=== PATIENT | female | born 1995 | race Caucasian/White ===

== ENCOUNTER 2017-06-16 14:32 | Emergency (ER) | payer OTHER ==
[~2017-06-16] VITALS: Ht 157.5 cm; Wt 94.3 kg
[~2017-06-16 14:32] MED LIST: CONCCAP2 PO; [UNRECOGNIZED DRUG - CODE] IM
--- NOTE | 2017-06-16 15:28 | PD ---
HPI Chief Complaint Lower abdominal pain Left sided back pain Date Seen: Jun 16, 2017 Time Seen: 15:25 (Jami Clark MD R1) Travel History International Travel<30 Days: No Contact w/Intl Traveler<30Days: No Known Affected Area: No (Jami Clark MD R1) History of Present Illness HPI Patient is a 22-year-old at 23 weeks and 5 days (HILDA 10/08/17 based on last menstrual period and confirmed by ultrasound) presents to OB triage complaining of lower abdominal and left-sided back pain. The abdominal pain is located across patient's lower midsection. The pain is constant but alters in intensity. Pain, at its worst, is a 6 out of 10. Tylenol does not relieve pain. Patient denies increased frequency in urination and burning with urination. Patient denies fever and chills. Patient denies contractions, vaginal bleeding and fluid leakage. Patient reports decreased movement today. Para: 0 : 1 (Jami Clark MD R1) History Past Medical History Narrative Medical RPR +; treated for syphilis 2 in 2016; last treatment last month; titer follow- up scheduled for 28 weeks by OB (Jami Clark MD R1) Obstetric History Obstetric History G1: current , no complications (Jami Clark MD R1) Past Surgical History Narrative Surgical Tonsillectomy - when patient was in kindergarten Broken arm - right, plate placement; when patient was in kindergarten No complications with anesthesia (Jami Clark MD R1) Family History Narrative Family History Mom and grandmom had C-sections; reason unknown (Jami Clark MD R1) Social History Alcohol Use: No Tobacco Use: Yes (1/2 to 1 pack per day) Substance Abuse: No (history of methamphetamine, heroin use; 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 ) (Jami Clark MD R1) Allergies-Medications (Allergen,Severity, Reaction): Coded Allergies: No Known Allergies (Unverified , 06/16/17) Home Meds Active Scripts Penicillin G Benzathine (Bicillin L-A)2,400,000 Unit/4 Ml Inj2,400,000 Units IM ONCE #1 VIAL Ref 0 Prov:Bhanu Garcia MD 04/08/17 Vit W/ Fe Fum-Iron Po (Concept Dha 53.5-38-1 mg)1 Cap Cap1 Tab PO DAILY #30 BOTTLE Ref 11 Prov:Lorri Acuna 03/20/17 Review of Systems General / Constitutional: No: Fever, Chills Eyes: No: Diploplia, Blurred Vision, Visual changes, Pain, Photophobia HENT: No: Headaches, Vertigo, Lightheadedness Cardiovascular: No: Irregular Rhythm, Chest Pain or Discomfort, Palpitations, Tachycardia, Syncope, Varicosities, Edema, Cyanosis Respiratory: No: Cough, Short of Breath, Other Gastrointestinal: Abdominal Pain, No: Nausea, Vomiting, Diarrhea Genitourinary: No: Urgency, Frequency, Dysuria, Hematuria, Vaginal Bleeding Musculoskeletal: No: Limited ROM, Weakness, Cramping, Edema, Pain Skin: No Rash, No Itching, No Dryness, No Lumps, No Change in Pigmentation, No Change in Nails, No Alopecia, No Lesions Neurologic: No: Weakness, Dizziness, Syncope, Focal Abnormalities, Coordination Problem, Headache, Slurred Speech, Seizures Psychiatric: No: Depression, Suicidal Ideations, Homicidal Ideation Endocrine: No: Heat Intolerance, Cold Intolerance, Polydipsia, Polyuria, Other (Jami Clark MD R1) Physical Exam Blood pressure 96/67, heart rate 83, respiratory rate 16, temperature 97.8 Narrative GENERAL: Well-nourished, well-developed patient. SKIN: Warm and dry. HEAD: Normocephalic and atraumatic. EYES: No scleral icterus. No injection or drainage. ENT: No nasal drainage noted. Mucous membranes pink. Airway patent. NECK: Supple, trachea midline. No JVD. CARDIOVASCULAR: Regular rate and rhythm without murmurs, gallops, or rubs. RESPIRATORY: Breath sounds equal bilaterally. No accessory muscle use. ABDOMEN/GI: Abdomen soft, non-tender, bowel sounds present, no rebound, no guarding Gravid to 23 weeks size GENITOURINARY: External Genitalia: intact and normal in appearance Cervix: Posterior Dilatation: Closed Effacement: Thick Station: High Membranes: Intact Uterine Contractions: None FHT's: Category: 1 Baseline: 150 Variability: Moderate Decels: None EXTREMITIES: No cyanosis or edema. BACK: Nontender without obvious deformity. No CVA tenderness. NEUROLOGICAL: Awake and alert. Motor and sensory grossly within normal limits. Five out of 5 muscle strength in all muscle groups. Normal speech. (Jami Clark MD R1) Data Data Vital Signs Reviewed: Yes (Jami Clark MD R1) MDM Plan Patient is a 22-year-old at 23 weeks and 5 days (HILDA 10/08/17 based on last menstrual period and confirmed by ultrasound) presents to OB triage complaining of lower abdominal and left-sided back pain. Round ligament pain * Educated and reassured patient with regard to benign nature of pain * Recommended pain control with Tylenol and hot showers Rule out UTI/Pyelonephritis * Urine drip negative (Jami Clark MD R1) Attending Attestation The exam, history, and the medical decision-making described in the above note were completed with the assistance of the resident provider. Cervical exam was verified by me. I reviewed and agree with the findings presented. I attest that I had a [id number] encounter with the patient on the same day, and personally performed and documented my assessment and findings in the medical record. (Dona Rebolledo MD) Diagnosis Diagnosis: Primary Impression: Round ligament pain Additional Impression: 23 weeks gestation of Disposition: 01 DISCHARGE HOME Condition: Good Patient Instructions: Movement (ED) Jami Clark MD R1 Jun 16, 2017 15:28 Dona Rebolledo MD Jun 16, 2017 15:59
--- NOTE | 2017-06-16 15:58 | PD.PN.STU ---
Subjective Remarks 22 yo at 23/5 weeks with HILDA 10/08/17 by LMP and US presents today with abdominal and low back pain. She states that for the last week she has had constant, sharp, 5/10 low abdominal pain. She also states she has right sided non-radiating low back pain. She has tried Tylenol twice without relief. She has been receiving care at [facility]. RPR+ with treatment last month. Rh-. She denies any increased urinary frequency, burning, fever or chills. She denoes contractions, vaginal bleeding, fluid leakage. She began to feel movement around 20 weeks. She has decreased movement yesterday. Past Medical History History of syphilis s/p treatment x2 both in 2017. She has follow up appointment at 28 weeks. Mediations Vitamins Allergies NKDA Surgical History Tonsillectomy in kindergarten Broken arm with pin placement in kindergarten Social History Tobacco use 1/2 to 1 pack per day. Currently attending [employer] [facility] [employer] [facility]. No alcohol use Past history of drug abuse with heroin, meth and coke. She has been clean for 1 year and has a good support system. Lives at home with dad, step mom and step sister. Reports a very supportive family. Father of baby is not involved. Objective Other Results Blood pressure 96/67, heart rate 83, respiratory rate 16, temperature 97.8 Narrative GENERAL: Well-nourished, well-developed patient. SKIN: Warm and dry. HEAD: Normocephalic and atraumatic. EYES: No scleral icterus. No injection or drainage. ENT: No nasal drainage noted. Mucous membranes pink. Airway patent. NECK: Supple, trachea midline. No JVD. CARDIOVASCULAR: Regular rate and rhythm without murmurs, gallops, or rubs. RESPIRATORY: Breath sounds equal bilaterally. No accessory muscle use. ABDOMEN/GI: Abdomen soft, non-tender, bowel sounds present, no rebound, no guarding Gravid to 23 weeks size GENITOURINARY: External Genitalia: intact and normal in appearance Cervix: Posterior Dilatation: Closed Effacement: Thick Station: High Membranes: Intact Uterine Contractions: None FHT's: Category: 1 Baseline: 150 Variability: Moderate Decels: None EXTREMITIES: No cyanosis or edema. BACK: Nontender without obvious deformity. No CVA tenderness. NEUROLOGICAL: Awake and alert. Motor and sensory grossly within normal limits. Five out of 5 muscle strength in all muscle groups. Normal speech. Procedures Urine dipstick negative throughout A/P Assessment and Plan 1. Round Ligament Pain - informed patient on etiology and to control pain with Tylenol, heating pads and light stretching - encouraged PO intake to remain well hydrated Attestation The exam, history, and the medical decision-making described in the above note were completed with the assistance of the medical student. I reviewed and agree with the findings presented. I attest that I had a [id number] encounter with the patient on the same day, and personally performed and documented my assessment and findings in the medical record. Aileen Joyner Jun 16, 2017 15:58 Dona Rebolledo MD Jun 16, 2017 17:30
== END 2017-06-16 16:33 | disposition home or self-care (01) ==
LOC: HOBED 14:32
DX: O26.892 Other specified pregnancy related conditions, second trimester (principal); Z3A.23 23 weeks gestation of pregnancy
CPT/HCPCS: 99284

== ENCOUNTER 2017-09-09 00:13 | Emergency (ER) | payer OTHER ==
[~2017-09-09 00:13] MED LIST changes: -[UNRECOGNIZED DRUG - CODE] IM
--- NOTE | 2017-09-09 00:49 | PD ---
HPI Chief Complaint Abdominal pain, back pain, leakage of fluid Date Seen: Sep 09, 2017 Time Seen: 00:40 Travel History International Travel<30 Days: No Contact w/Intl Traveler<30Days: No Known Affected Area: No History of Present Illness HPI Patient is 22-year-old white female at 35 weeks gestation [facility] and sent over from [facility] for OB evaluation. Patient presented therefore evaluation of low back pain lower abdominal pain leakage of fluid. Amnio sure was negative there. Heart rate tracing is reactive. No contractions seen Weeks Gestation: 35 Para: 0 : 1 History Social History Alcohol Use: No Tobacco Use: No Substance Abuse: No Allergies-Medications (Allergen,Severity, Reaction): Coded Allergies: No Known Allergies (Unverified , 08/20/17) Home Meds Active Scripts Vit W/ Fe Fum-Iron Po (Concept Dha 53.5-38-1 mg) 1 Cap Cap, 1 TAB PO DAILY, #30 BOTTLE 11 Refills Prov:Lorri Acuna 03/20/17 Review of Systems General / Constitutional: No: Fever, Weight Gain, Chills, Other Eyes: No: Diploplia, Blurred Vision, Visual changes, Pain, Photophobia HENT: No: Headaches, Vertigo, Lightheadedness Cardiovascular: No: Irregular Rhythm, Chest Pain or Discomfort, Palpitations, Tachycardia, Syncope, Varicosities, Edema, Cyanosis Respiratory: No: Cough, Short of Breath, Other Gastrointestinal: Abdominal Pain, No: Nausea, Vomiting, Diarrhea Genitourinary: No: Decreased Urinary Output, Oliguria Musculoskeletal: No: Limited ROM, Weakness, Cramping, Edema, Pain Skin: No Rash, No Itching, No Dryness, No Lumps, No Change in Pigmentation, No Change in Nails, No Alopecia, No Lesions Neurologic: No: Weakness, Dizziness, Syncope, Focal Abnormalities, Coordination Problem, Headache, Slurred Speech, Seizures Psychiatric: No: Depression, Suicidal Ideations, Homicidal Ideation Endocrine: No: Heat Intolerance, Cold Intolerance, Polydipsia, Polyuria, Other Physical Exam Narrative GENERAL: Well-nourished, well-developed patient. SKIN: Warm and dry. HEAD: Normocephalic and atraumatic. EYES: No scleral icterus. No injection or drainage. ENT: No nasal drainage noted. Mucous membranes pink. Airway patent. NECK: Supple, trachea midline. No JVD. CARDIOVASCULAR: Regular rate and rhythm without murmurs, gallops, or rubs. RESPIRATORY: Breath sounds equal bilaterally. No accessory muscle use. BREASTS: Bilateral exam showed no masses , no retractions, no nipple discharge. ABDOMEN/GI: Abdomen soft, non-tender, bowel sounds present, no rebound, no guarding Gravid to [-35] weeks size Fundal Height: [35-] GENITOURINARY: External Genitalia: intact and normal in appearance BUS glands: [-] Cervix: [-] Dilatation: [-0] Effacement: [-0] Station: [-3] Presentation: [-] Membranes: [intact ] amnisure neg Uterine Contractions: [0-] FHT's: Category: [1-] Baseline: [133-] Reactive: [yes-] Variability: [mod-] Decels: [0-] EXTREMITIES: No cyanosis or edema. BACK: Nontender without obvious deformity. No CVA tenderness. NEUROLOGICAL: Awake and alert. Motor and sensory grossly within normal limits. Five out of 5 muscle strength in all muscle groups. Normal speech. MDM Interpretation(s) 22-year-old white female at 35 weeks sent over the [facility] for evaluation of the fetus, she had lower abdominal pain and back pain. She thought she was leaking fluid amnio sure was negative and [facility] heart rate tracing is reactive no contractions seen, cervix closed high thick, urine dipstick negative Plan Plan to discharge patient home . She has an IV by the ambulance, so we will give fentanyl 50 microgram IV for pain relief. She will continue to use Tylenol home, heating pad or hot bath, bedrest, increase oral fluids. Diagnosis Diagnosis: Primary Impression: Abdominal pain during in third trimester Additional Impressions: Low back pain during in third trimester No leakage of amniotic fluid into vagina Disposition: 01 DISCHARGE HOME Condition: Stable Patient Instructions: General Instructions, Labor (ED), Movement (ED), Abdominal Pain in (ED) Departure Forms: Tests/Procedures Almas Lopez II, MD Sep 09, 2017 00:49
[2017-09-22] MEDS ORDERED: AMOX500T PO (12:45)
== END 2017-09-09 01:27 | disposition home or self-care (01) ==
LOC: HOBED 00:13
DX: Z03.71 Encounter for suspected problem with amniotic cavity and membrane ruled out (principal); O26.893 Other specified pregnancy related conditions, third trimester; M54.5 Low back pain; Z3A.35 35 weeks gestation of pregnancy
CPT/HCPCS: 59025; 96372; J3010

== ENCOUNTER → 2017-10-08 | Emergency (ER) | payer OTHER ==
[~2017-10-08] MED LIST changes: +AMOX500T PO; +IBUP-232 PO; +MACR100C2 PO; +OXYC1TAB63 PO
--- NOTE | 2017-10-08 20:01 | PD ---
HPI Chief Complaint ctx q15m and ?LOF Date Seen: Oct 08, 2017 Time Seen: 19:52 Travel History International Travel<30 Days: No Contact w/Intl Traveler<30Days: No Known Affected Area: No History of Present Illness HPI 22y/o G1 @ 40.0wks. She has PNC (limited) at [facility]. She presents today for ctx and ?LOF. She states that she has soaked pads in an hour. +FM. No VB. is c/b: -- h/o polysubstance abuse -- Rh neg (s/p rhogam) -- syphilis (s/p PCN, last titer 1:8) -- tobacco abuse (0.5-1 PPD) Weeks Gestation: 40 Para: 0 : 1 Last Menstrual Period: Oct 08, 2017 History Past Medical History Narrative Medical syphillis GC/CT prior to preg h/o PSA (heroin, cocaine, crack, meth) Obstetric History Obstetric History G1. current, limited PNC Past Surgical History Narrative Surgical tonsils R arm Family History Family History: Negative Social History Tobacco Use: Yes (0.5 to 1 PPD) Substance Abuse: No (+ history) Allergies-Medications (Allergen,Severity, Reaction): Coded Allergies: No Known Allergies (Unverified Allergy, Unknown, 09/16/17) Home Meds Active Scripts Amoxicillin (Amoxicillin) 500 Mg Tab, 500 MG PO QID for Infection for 7 Days, # 28 TAB 0 Refills Prov:Melida Michelle CNM [facility] 09/22/17 Vit W/ Fe Fum-Iron Po (Concept Dha 53.5-38-1 mg) 1 Cap Cap, 1 TAB PO DAILY, #30 BOTTLE 11 Refills Prov:Lorri Acuna [facility] 03/20/17 Review of Systems Except as stated in HPI: all other systems reviewed are Neg Physical Exam Narrative GENERAL: Well-nourished, well-developed patient. SKIN: Warm and dry. HEAD: Normocephalic and atraumatic. EYES: No scleral icterus. No injection or drainage. ABDOMEN/GI: Abdomen soft, non-tender EXTREMITIES: No cyanosis or edema. BACK: Nontender without obvious deformity. NEUROLOGICAL: Awake and alert. Motor and sensory grossly within normal limits. CVX: 0/th/-3 FHTs: 135, +accels, no decels, moderate variability, reactive TOCO: no ctx Data Data Vital Signs Reviewed: Yes Orders Orders Vital Signs (Adult) .ON ADMISSION (10/08/17 19:48) ^ Labor Status (10/08/17 19:48) ^ Non Stress Test (10/08/17 19:48) Ed Discharge Order (10/08/17 19:48) MDM Plan 22y/o G1 @ 40.0wks. -- cat 1 FHTs -- cvx cl/th/high -- toco quiet -- amnisure negative -- encouraged PNV this week Dispo: d/c home with precautions Diagnosis Diagnosis: Primary Impression: 40 weeks gestation of Additional Impressions: Uterine contractions during No leakage of amniotic fluid into vagina Cem Curry MD Oct 08, 2017 20:01
== END | disposition home or self-care (01) ==
LOC: HOBED 18:15
DX: O47.1 False labor at or after 37 completed weeks of gestation (principal); Z3A.40 40 weeks gestation of pregnancy
CPT/HCPCS: 84112; 87641; 99284

== ENCOUNTER 2017-10-13 12:26 | Inpatient (IN) | payer OTHER ==
[2017-10-13] VITALS (13 sets, daily range): BP systolic 115–138; BP diastolic 61–111; PULSE 81–106; RESP 18; TEMP 97.9–98
[~2017-10-13] VITALS: Ht 157.5 cm; Wt 106.0 kg
[~2017-10-13 12:26] MED LIST changes: -IBUP-232 PO; -MACR100C2 PO; -OXYC1TAB63 PO
[2017-10-13] MEDS: LACTATED RINGER'S 1000 ML INJ 1,000 ML IV SCH ×2 (13:13→22:13)
[2017-10-13] MEDS ORDERED: LACTATED RINGER'S 1000 ML INJ 1,000 ML IV PRN (14:13)
[2017-10-13] MEDS ORDERED: LIDOCAINE HCL 1% 50 ML VIAL INFIL PRN (14:15)
[2017-10-13] MEDS ORDERED: LIDOCAINE HCL 1% 50 ML VIAL I-DERMAL PRN (14:15)
[2017-10-13] MEDS ORDERED: OXYTOCIN 30 UNITS-500ML PREMIX 500 ML IV ONE (14:15)
[2017-10-13] MEDS ORDERED: SODIUM CHLORID 0.9% 500 ML INJ 500 ML IV PRN (14:15)
[2017-10-13] MEDS ORDERED: MINERAL OIL 10 ML VIAL TOPICAL PRN (14:15)
[2017-10-13] MEDS ORDERED: CITRIC ACID-SODIUM CITRATE LIQ 30 ML UDC PO SCH (14:15)
[2017-10-13 14:28] LABS: AUTOMATED NEUTROPHIL # 11.4 TH/MM3 (1.8-7.7); BASOPHIL # 0.1 TH/MM3 (0-0.2); BASOPHIL % 0.5 % (0.0-2.0); EOSINOPHIL # 0.2 TH/MM3 (0-0.4); EOSINOPHIL % 1.2 % (0.0-4.0); HEMATOCRIT 31.7 % (35.0-46.0); HEMO FLAGS DIFF FINAL; LYMPH % 15.9 % (9.0-44.0); LYMPHOCYTE # 2.4 TH/MM3 (1.0-4.8); MEAN CELL VOLUME 71.2 FL (80.0-100.0); MEAN CORPUSCULAR HEMOGLOBIN 22.7 PG (27.0-34.0); MEAN CORPUSCULAR HGB CONC 31.9 % (32.0-36.0); MONO % 6.2 % (0.0-8.0); NEUT % 76.2 % (16.0-70.0); PLATELET COUNT 367 TH/MM3 (150-450); RED BLOOD COUNT 4.45 MIL/MM3 (4.00-5.30); RED CELL DISTRIBUTION WIDTH 16.2 % (11.6-17.2)
[2017-10-13] MEDS ORDERED: SODIUM CHLOR 0.9% 1000 ML INJ 1,000 ML IV PRN (14:33)
[2017-10-13 14:34] LABS: BACTERIA, URINE RARE /hpf; BLOOD, URINE NEG (NEG); COMMENT (UR) CULT NOT INDICATED; CULTURE IF INDICATED CULT NOT INDICATED; GLUCOSE,URINE NEG (NEG); HYALINE CAST, URINE 1 /lpf (RARE); KETONE, URINE TRACE mg/dL (NEG); MUCUS URINE FEW /lpf (OCC); NITRITE,URINE NEG (NEG); PH, URINE 6.5 (5.0-8.5); SQUAMOUS EPITHELIAL CELL URINE 5 /hpf (0-5); URINE COLOR YELLOW (YELLW/STRAW)
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
[2017-10-13] MEDS ORDERED: PENICILLIN G POTASSIUM INJ 5,000,000 UNITS in SODIUM CHLORIDE 0.9% INJ 100 ML IV ONE (15:00)
[2017-10-13 17:12] LABS: HEMOGLOBIN A1a 1.2 %; HEMOGLOBIN A1b 1.9 %; HEMOGLOBIN Ao 85.1 %; HEMOGLOBIN LA1C 1.9 %; HEMOGLOBIN P3 3.4 %
--- NOTE | 2017-10-13 17:56 | HHI.PR ---
Subjective Remarks Patient is a 22-year-old who was sent over from the office for decreased movement at 40 weeks and 5 days. She reportedly had an NST that was normal at the office. She had an ultrasound performed today that showed a single intrauterine in the cephalic presentation with an estimated weight of 02/07/03 grams corresponding with 9 pounds and 1 ounce. A biophysical profile was 8/8. The patient also had polyhydramnios with an LIBBY of 34-37 cm. Of note the patient did not receive any diabetic testing during her . Had a lengthy discussion with the patient regarding the large for dates and polyhydramnios which is suspicious for gestational diabetes. I spoke with the patient regarding current recommendations for recommendation of delivery for estimated weight of 4500 g with gestational diabetes. Although the patient has been not been diagnosed with gestational diabetes because she did not receive her sugar testing, she did have a normal Accu-Chek of 92 at the office after drinking 2 cans of Coca-Cola. Discussed with the patient the risks of shoulder dystocia including but not limited to permanent and irreversible neurological injury to the , brain damage, and . Also discussed other risks of labor as well as maternal risks. In addition we discussed the risks in brief of delivery as well as indications a delivery. Risks of delivery include but are not limited to pain, infection, bleeding, injury to other organs like the bladder/bowel/nerves/vessels or baby, need for repeat operation, need for hysterectomy or blood transfusion, wound infection and breakdown, and other possible complications. We discussed other possible complications of delivery including vaginal lacerations of third/fourth degree and discussed maternal and indications for delivery. The patient desires a trial of labor, however is willing for if there is a maternal or indication. We discussed methods of induction of labor. All of her questions were answered and consent was signed. Objective Vital Signs Date Time Temp Pulse Resp B/P (MAP) Pulse Ox O2 Delivery O2 Flow Rate FiO2 10/13/17 17:01 99 126/68 (87) 10/13/17 16:30 106 138/84 (102) 10/13/17 16:01 95 121/98 (106) 10/13/17 15:00 85 128/74 (92) 10/13/17 14:41 86 128/84 (99) Result Diagram: 10/13/17 1303 Lorri Gregory MD Oct 13, 2017 17:56
[2017-10-13] MEDS ORDERED: PENICILLIN G POTASSIUM INJ 2,500,000 UNITS in SODIUM CHLORIDE 0.9% INJ 100 ML IV SCH (19:00)
[2017-10-13] MEDS ORDERED: NICOTINE 14 MG/24 HR PATCH T-DERMAL ONE (20:00)
[2017-10-13] MEDS ORDERED: ACETAMINOPHEN 325 MG TAB PO PRN (20:45)
[2017-10-13] MEDS: guaiFENesin SOLUTION 200 MG/10 ML CUP PO PRN (20:51)
[2017-10-13] MEDS ORDERED: SODIUM CHLORIDE 0.9% FLUSH 10 ML FLUSH IV FLUSH PRN (22:15)
[2017-10-13] MEDS ORDERED: MISOPROSTOL 100 MCG TAB VAGINAL ONE (22:15)
[2017-10-13] MEDS: MISOPROSTOL 100 MCG TAB VAGINAL PRN (22:41)
--- NOTE | 2017-10-13 22:49 | PD.LABORPN ---
Subjective Subjective Cervix closed. Cervadil placed. (Betty Stephenson MD R1) Objective Vital Signs Vital Signs Date Time Temp Pulse Resp B/P (MAP) Pulse Ox O2 Delivery O2 Flow Rate FiO2 10/13/17 19:15 97.9 10/13/17 19:12 18 10/13/17 19:01 115/61 (79) 10/13/17 19:01 98 10/13/17 18:31 103 126/75 (92) 10/13/17 18:01 102 129/99 (109) 10/13/17 17:30 88 127/111 (116) 10/13/17 17:01 99 126/68 (87) 10/13/17 16:30 106 138/84 (102) 10/13/17 16:01 95 121/98 (106) 10/13/17 15:00 85 128/74 (92) Objective Pelvic Exam: Cervix: [midline] Dilatation: [closed] Effacement: [-] Station: [-] Presentation: [-] Membranes: [intact or ruptured] Uterine Contractions: [-] FHT's: Category: [1] Baseline: [120] Reactive: [yes] Variability: [moderate] Decels: [none] Weeks Gestation: 40 (Betty Stephenson MD R1) Assessment/Plan Problem List: (1) Post-dates ICD Codes: O48.0 - Post-term (2) LGA (large for gestational age) fetus affecting mother, antepartum ICD Codes: O36.60X0 - Maternal care for excessive growth, unspecified trimester, not applicable or unspecified (3) Polyhydramnios ICD Codes: O40.9XX0 - Polyhydramnios, unspecified trimester, not applicable or unspecified Assessment and Plan Con't to monitor via FHT Recheck q4H (Betty Stephenson MD R1) Assessment and Plan The patient was personally seen and examined by me and I performed all álvarez portions of the decision making. I personally supervised the placement of cytotec (error noted above: cytotec was placed, not cervidil). (Lorri Gregory MD) Betty Stephenson MD R1 Oct 13, 2017 22:49 Lorri Gregory MD Oct 16, 2017 11:44
[2017-10-13] MEDS ORDERED: CALCIUM CARBONATE 500 MG CHEWABLE TAB PO PRN (23:30)
[2017-10-13] MEDS ORDERED: ZOLPIDEM TARTRATE 10 MG TAB PO PRN (23:30)
[2017-10-14] VITALS (12 sets, daily range): BP systolic 102–153; BP diastolic 61–85; PULSE 80–107; RESP 18–21; TEMP 97.5–98.7; O2SAT 95–99
[2017-10-14] MEDS: MISOPROSTOL 100 MCG TAB VAGINAL PRN ×3 (03:00→11:05)
[2017-10-14] MEDS: BENZONATATE 100 MG CAP PO PRN ×2 (03:00→12:59)
[2017-10-14] MEDS ORDERED: ONDANSETRON HCL 4 MG/2 ML VIAL ONE (03:19)
[2017-10-14] MEDS: LACTATED RINGER'S 1000 ML INJ 1,000 ML IV SCH ×2 (03:40→12:59)
--- NOTE | 2017-10-14 07:00 | HHI.PR ---
Subjective Remarks OB Hg S. Patient is resting comfortably, she reports some mild cramping Oh: VSS AF FHT: 130s, moderate long-term variability, good accelerations, no decelerations [place]: No regular contractions noted SVE: Closed/25/high Assessment/plan: 1. IUP at 40.6 2. Induction of labor: Status post Cytotec 2, Cytotec 25 g #3 placed at 7:05 AM 3. Suspected macrosomia with polyhydramnios: No diabetic testing performed with hemoglobin A1c 5.7 at admission. Patient is aware of risks of shoulder dystocia with possible complications and delivery with possible maternal and indications and complications 4. GBS positive 5. Reassuring well-being with category 1 heart rate tracing Objective Vital Signs Date Time Temp Pulse Resp B/P (MAP) Pulse Ox O2 Delivery O2 Flow Rate FiO2 10/14/17 05:58 84 102/61 (75) 10/14/17 05:54 97.5 18 10/14/17 03:00 98.1 18 10/14/17 03:00 84 152/85 (107) 10/14/17 03:00 148/85 (106) 10/13/17 22:59 81 18 121/72 (88) 10/13/17 22:56 98.0 10/13/17 19:15 97.9 10/13/17 19:12 18 10/13/17 19:01 115/61 (79) 10/13/17 19:01 98 10/13/17 18:31 103 126/75 (92) 10/13/17 18:01 102 129/99 (109) 10/13/17 17:30 88 127/111 (116) 10/13/17 17:01 99 126/68 (87) 10/13/17 16:30 106 138/84 (102) 10/13/17 16:01 95 121/98 (106) 10/13/17 15:00 85 128/74 (92) 10/13/17 14:41 86 128/84 (99) I/O 10/13/17 10/13/17 10/13/17 10/14/17 10/14/17 10/14/17 07:00 15:00 23:00 07:00 15:00 23:00 Intake Total 1000 ml 1000 ml Balance 1000 ml 1000 ml Intake IV Total 1000 ml 1000 ml Result Diagram: 10/13/17 1303 Lorri Gregory MD Oct 14, 2017 07:00
[2017-10-14] MEDS: guaiFENesin SOLUTION 200 MG/10 ML CUP PO PRN (07:14)
[2017-10-14] MEDS ORDERED: SODIUM CHLORIDE 0.9% FLUSH 10 ML FLUSH IV FLUSH SCH ×2 (09:00→21:00)
--- NOTE | 2017-10-14 11:23 | PD.LABORPN ---
Subjective Subjective Pt is doing okay. Has cough. Has received 3 doses of cytotec. Patient and family are considering options. Objective Vital Signs Vital Signs Date Time Temp Pulse Resp B/P (MAP) Pulse Ox O2 Delivery O2 Flow Rate FiO2 10/14/17 05:58 84 102/61 (75) 10/14/17 05:54 97.5 18 Objective Pelvic Exam: Cervix: Posterior Dilatation: 0cm Effacement: Thick Station: Head not engaged in the pelvis, ballotable Presentation: Cephalic Membranes: intact Uterine Contractions: present, infrequent FHT's: Category: I Baseline: 130 Reactive: accels present Variability: Moderate Decels: None Weeks Gestation: 40 Assessment/Plan Problem List: (1) Post-dates ICD Codes: O48.0 - Post-term (2) LGA (large for gestational age) fetus affecting mother, antepartum ICD Codes: O36.60X0 - Maternal care for excessive growth, unspecified trimester, not applicable or unspecified (3) Polyhydramnios ICD Codes: O40.9XX0 - Polyhydramnios, unspecified trimester, not applicable or unspecified Assessment and Plan 22 y/o at 40/6 weeks gestation presents for IOL -Cervical ripening with cytotec. 4th dose inserted at 11:00am -No cervical change, cervix high, thick and closed, head not engaged -Will continue cytotec up to 1 more day -Discussed option with patient and family due to macrosomia and no cervical change - will continue cervical ripening at this time -NPO in case is decided or required -Continue routine antepartum care Rosita Monte MD R2 Oct 14, 2017 11:23
[2017-10-14] MEDS ORDERED: ceFAZolin 2 GM PREMIX 50 ML IV SCH (14:00)
[2017-10-14] MEDS ORDERED: ACETAMINOPHEN 325 MG TAB PO PRN (15:00)
[2017-10-14] MEDS ORDERED: ZOLPIDEM TARTRATE 5 MG TAB PO PRN (15:00)
[2017-10-14] MEDS ORDERED: oxyCODONE/ACETAMINOPHEN 5 MG/325 MG TAB PO PRN (15:00)
[2017-10-14] MEDS ORDERED: ONDANSETRON HCL 4 MG/2 ML VIAL IV PUSH PRN (15:00)
[2017-10-14] MEDS ORDERED: OXYTOCIN 30 UNITS-500ML PREMIX 500 ML IV ONE (15:00)
[2017-10-14] MEDS ORDERED: DOCUSATE SODIUM 50 MG/SENNA 8.6 MG TAB PO PRN (15:00)
[2017-10-14] MEDS ORDERED: SIMETHICONE 80 MG CHEWABLE TAB PO PRN (15:00)
[2017-10-14] MEDS ORDERED: SODIUM CHLORIDE 0.9% FLUSH 10 ML FLUSH IV FLUSH PRN (15:00)
[2017-10-14] MEDS ORDERED: OXYTOCIN 30 UNITS-500ML PREMIX 0 ML ONE (15:07)
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
[2017-10-14] MEDS ORDERED: EPIDURAL-DIPHENHYDRAMINE HCL 50 MG/ML VIAL IV PUSH PRN (16:55)
[2017-10-14] MEDS ORDERED: EPIDURAL-NO SYSTEMIC NARCOTICS PRN (16:55)
[2017-10-14] MEDS ORDERED: EPIDURAL-DO NOT ADMINISTER ANTICOAGULANTS PRN (16:55)
[2017-10-14] MEDS ORDERED: EPIDURAL-NALOXONE HCL 0.4 MG/ML AMP IV PUSH PRN (16:55)
[2017-10-14] MEDS ORDERED: EPIDURAL-DIPHENHYDRAMINE HCL 50 MG CAP PO PRN (16:55)
[2017-10-14] MEDS ORDERED: LACTATED RINGER'S 1000 ML INJ 1,000 ML IV SCH (19:52)
[2017-10-14] MEDS ORDERED: REMOVE OLD NICODERM (NICOTINE) PATCH T-DERMAL SCH (20:00)
[2017-10-14] MEDS ORDERED: BENZONATATE 100 MG CAP PO PRN (21:00)
[2017-10-14] MEDS ORDERED: guaiFENesin SOLUTION 200 MG/10 ML CUP PO PRN (21:00)
[2017-10-14] MEDS: KETOROLAC TROMETHAMINE 30 MG/ML (IVP) VIAL IV PUSH PRN (22:18)
[2017-10-15 00:13] VITALS: BP 117/74; PULSE 99; RESP 18; TEMP 99.9; O2SAT 93
[2017-10-15] MEDS: NICOTINE 21 MG/24 HR PATCH T-DERMAL SCH ×2 (00:31→09:39)
[2017-10-15] MEDS ORDERED: OXYTOCIN 30 UNITS-500ML PREMIX 500 ML IV PRN (01:00)
[2017-10-15 04:00] VITALS: BP 133/75; PULSE 106; RESP 20; TEMP 99.3; O2SAT 93
[2017-10-15] MEDS: BENZONATATE 100 MG CAP PO PRN ×2 (05:18→16:53)
[2017-10-15] MEDS: KETOROLAC TROMETHAMINE 30 MG/ML (IVP) VIAL IV PUSH PRN ×2 (05:18→11:34)
[2017-10-15 05:52] LABS: AUTOMATED NEUTROPHIL # 11.7 TH/MM3 (1.8-7.7); BASOPHIL # 0.1 TH/MM3 (0-0.2); BASOPHIL % 0.5 % (0.0-2.0); EOSINOPHIL # 0.1 TH/MM3 (0-0.4); EOSINOPHIL % 0.6 % (0.0-4.0); HEMATOCRIT 24.6 % (35.0-46.0); HEMO FLAGS DIFF FINAL; LYMPH % 15.5 % (9.0-44.0); LYMPHOCYTE # 2.4 TH/MM3 (1.0-4.8); MEAN CELL VOLUME 70.4 FL (80.0-100.0); MEAN CORPUSCULAR HEMOGLOBIN 22.8 PG (27.0-34.0); MEAN CORPUSCULAR HGB CONC 32.4 % (32.0-36.0); NEUT % 76.4 % (16.0-70.0); PLATELET COUNT 339 TH/MM3 (150-450); RED BLOOD COUNT 3.49 MIL/MM3 (4.00-5.30); RED CELL DISTRIBUTION WIDTH 16.3 % (11.6-17.2); WHITE BLOOD COUNT 15.3 TH/MM3 (4.0-11.0)
[2017-10-15 08:00] VITALS: BP 141/84; PULSE 115; RESP 22; TEMP 98.9; O2SAT 98
[2017-10-15] MEDS: REMOVE OLD NICODERM (NICOTINE) PATCH T-DERMAL SCH (09:39)
--- NOTE | 2017-10-15 09:59 | HHI.OB ---
Subjective Post Operative Day: 1 Remarks Patient's postop day 1 afebrile vital signs stable She has no complaints other than some minimal tenderness. Bleeding decreased A baby doing well Objective Vitals/I&O Vital Signs Date Time Temp Pulse Resp B/P (MAP) Pulse Ox O2 Delivery O2 Flow Rate FiO2 10/15/17 08:00 98.9 22 98 10/15/17 08:00 115 141/84 (103) 10/15/17 04:00 99.3 106 20 133/75 (94) 93 10/15/17 00:13 99.9 99 18 117/74 (88) 93 10/14/17 20:15 98.7 95 10/14/17 20:15 107 20 136/83 (100) 10/14/17 20:15 107 20 136/83 (100) 10/14/17 20:15 98.7 95 10/14/17 16:15 103/84 (90) 10/14/17 16:15 98.2 83 18 97 10/14/17 15:45 85 19 145/83 (103) 97 10/14/17 15:45 97.9 10/14/17 15:33 80 18 142/84 (103) 98 10/14/17 15:20 87 19 153/80 (104) 99 10/14/17 15:05 102 135/69 (91) 10/14/17 15:05 21 98 10/14/17 14:50 98.1 10/14/17 14:50 91 20 139/67 (91) 10/14/17 14:50 98 10/14/17 11:55 94 136/62 (86) 10/14/17 11:45 98.4 20 Result Diagram: 10/15/17 0524 Objective Remarks GENERAL: Well-nourished, well-developed patient. CARDIOVASCULAR: Regular rate and rhythm without murmurs, gallops, or rubs. RESPIRATORY: Breath sounds equal bilaterally. No accessory muscle use. ABDOMEN/GI: Abdomen soft, non-tender, bowel sounds present. Incision: Clean, dry and intact. Fundus: Firm, non-tender at umbilicus. GENITOURINARY: Light to moderate bleeding. EXTREMITIES: No cyanosis or edema, non-tender, without signs of DVT. Medications and IVs Current Medications Medications (Trade) Dose Ordered Sig/Marvin Route Start Time Stop Time Status Last Admin (Xylocaine 1% Inj (50 ml)) 0.1 ml UNSCH X1 PRN I-DERMAL 10/13/17 14:15 10/16/17 14:14 (Bicitra Liq) 30 ml FREIGHT ELEVATOR OPERATOR PO 10/13/17 14:15 10/17/17 14:14 10/14/17 12:59 (Xylocaine 1% Inj (50 ml)) 10 ml UNSCH X1 PRN INFIL 10/13/17 14:15 10/15/17 14:14 Cefazolin Sodium/ Dextrose 50 ml @ 100 mls/hr FREIGHT ELEVATOR OPERATOR IV 10/14/17 14:00 10/18/17 13:59 Lactated Ringer's 1,000 ml @ 100 mls/hr Q10H IV 10/14/17 19:52 10/15/17 15:51 Oxytocin 500 ml @ 100 mls/hr UNSCH X1 PRN IV 10/15/17 01:00 10/16/17 00:59 (NS Flush) 2 ml BID IV FLUSH 10/14/17 21:00 (NS Flush) 2 ml UNSCH PRN IV FLUSH 10/14/17 15:00 (Mylicon Chew) 80 mg QID PRN PO 10/14/17 15:00 (Tylenol) 650 mg Q6H PRN PO 10/14/17 15:00 (Motrin) 600 mg Q6H PRN PO 10/14/17 15:00 (Percocet 5-325 Mg) 1 tab Q4H PRN PO 10/14/17 15:00 (Percocet 5-325 Mg) 2 tab Q4H PRN PO 10/14/17 15:00 (Jenifer-Colace) 2 tab Q12H PRN PO 10/14/17 15:00 (Ambien) 5 mg HS PRN PO 10/14/17 15:00 (M-M-R Ii Inj) 0.5 ml ONCE ONCE SQ 10/15/17 16:00 10/15/17 16:01 (Boostrix Inj) 0.5 ml ONCE ONCE IM 10/15/17 16:00 10/15/17 16:01 10/14/17 22:20 (Zofran Inj) 4 mg Q6H PRN IV PUSH 10/14/17 15:00 10/14/17 22:19 Miscellaneous Information NO SYSTEMIC NARCOTICS TO BE GIVEN FO... UNSCH PRN .XX 10/14/17 16:55 10/15/17 16:54 (Narcan Inj) 0.4 mg UNSCH PRN IV PUSH 10/14/17 16:55 10/15/17 16:54 (Benadryl Inj) 25 mg Q6H PRN IV PUSH 10/14/17 16:55 10/15/17 16:54 (Benadryl) 50 mg Q6H PRN PO 10/14/17 16:55 10/15/17 16:54 Miscellaneous Information ALL NURSING DEPARTMENTS UNSCH PRN .XX 10/14/17 16:55 10/15/17 16:54 (Robitussin Liq) 200 mg Q4H PRN PO 10/14/17 21:00 (Toradol Inj) 30 mg Q6H PRN IV PUSH 10/14/17 21:45 10/18/17 21:44 10/15/17 05:18 (Tessalon) 200 mg Q8H PRN PO 10/14/17 23:00 10/15/17 05:18 (Habitrol 21 Mg Patch.24 Hr) 1 patch DAILY T-DERMAL 10/14/17 23:15 10/15/17 09:39 Miscellaneous Information 1 HS T-DERMAL 10/15/17 21:00 Assessment/Plan Problem List: (1) Post-dates ICD Codes: O48.0 - Post-term (2) LGA (large for gestational age) fetus affecting mother, antepartum ICD Codes: O36.60X0 - Maternal care for excessive growth, unspecified trimester, not applicable or unspecified (3) Polyhydramnios ICD Codes: O40.9XX0 - Polyhydramnios, unspecified trimester, not applicable or unspecified Assessment and Plan 22 year old at 40/5 weeks gestation, GBS positive delivered by C/S for FTP failed induction , macrosomia ,polyhydramnios Pt doing well postop begin progressive post op course Almas Lopez II, MD Oct 15, 2017 09:59
[2017-10-15] MEDS: oxyCODONE/ACETAMINOPHEN 5 MG/325 MG TAB PO PRN (11:34)
[2017-10-15 11:39] VITALS: BP 142/88; PULSE 110; RESP 22; TEMP 98; O2SAT 95
[2017-10-15] MEDS ORDERED: NO SYSTEM NARCOTICS PRN (12:45)
[2017-10-15] MEDS ORDERED: fentaNYL 2MCG-BUPIV 0.125% 100 ML EPIDURAL SCH (12:45)
[2017-10-15] MEDS ORDERED: DO NOT ADMINISTER ANTICOAGULANTS PRN (12:45)
[2017-10-15] MEDS ORDERED: ePHEDrine/NS 25 MG/5 ML SYR IV PUSH PRN (12:45)
[2017-10-15 15:19] VITALS: BP 145/89; PULSE 107; RESP 22; TEMP 98.4; O2SAT 96
[2017-10-15] MEDS ORDERED: MEASLES, MUMPS, RUBELLA VACCINE 0.5 ML VIAL SQ ONE (16:00)
[2017-10-15] MEDS ORDERED: DIPHTH/TETANUS/ACEL PERTUSSIS (BOOSTER) 0.5 ML VIAL/PFS IM ONE (16:00)
[2017-10-15] MEDS: IBUPROFEN 600 MG TAB PO PRN (16:52)
[2017-10-15 19:30] VITALS: BP 121/87; PULSE 110; RESP 20; TEMP 98.4
[2017-10-16] MEDS: IBUPROFEN 600 MG TAB PO PRN (05:27)
[2017-10-16] MEDS: oxyCODONE/ACETAMINOPHEN 5 MG/325 MG TAB PO PRN ×2 (05:27→09:34)
[2017-10-16] MEDS: BENZONATATE 100 MG CAP PO PRN (05:34)
--- NOTE | 2017-10-16 06:56 | HHI.OB ---
Subjective Remarks POD day # 2. No acute issues overnight, vitals are stable, patient remains afebrile. Incision draining a small amount of blood. Decreasing lochia and pain. Patient is ambulating without difficulty and voiding independently. She is feeding the baby via formula. She denies any nausea or vomiting and has a good appetite. Positive flatus/bowel movement. She denies any calf pain, chest pain, or shortness of breath. She is bonding well with . Objective Vitals/I&O Vital Signs Date Time Temp Pulse Resp B/P (MAP) Pulse Ox O2 Delivery O2 Flow Rate FiO2 10/15/17 19:30 98.4 110 20 10/15/17 19:30 121/87 (98) 10/15/17 15:19 98.4 107 22 145/89 (107) 96 10/15/17 11:39 98.0 10/15/17 11:39 110 22 142/88 (106) 95 10/15/17 08:00 98.9 22 98 10/15/17 08:00 115 141/84 (103) Result Diagram: 10/15/17 0524 Objective Remarks GENERAL: Well-nourished, well-developed patient. CARDIOVASCULAR: Regular rate and rhythm without murmurs, gallops, or rubs. RESPIRATORY: Breath sounds equal bilaterally. No accessory muscle use. ABDOMEN/GI: Abdomen soft, non-tender, bowel sounds present. Incision: Clean, dry and intact. Fundus: Firm, non-tender at umbilicus. GENITOURINARY: Light to moderate bleeding. EXTREMITIES: No cyanosis or edema, non-tender, without signs of DVT. Medications and IVs Current Medications Medications (Trade) Dose Ordered Sig/Marvin Route Start Time Stop Time Status Last Admin (Xylocaine 1% Inj (50 ml)) 0.1 ml UNSCH X1 PRN I-DERMAL 10/13/17 14:15 10/16/17 14:14 (Bicitra Liq) 30 ml TRANSITION OF CARE SPECIALIST PO 10/13/17 14:15 10/17/17 14:14 10/14/17 12:59 Cefazolin Sodium/ Dextrose 50 ml @ 100 mls/hr TRANSITION OF CARE SPECIALIST IV 10/14/17 14:00 10/18/17 13:59 (NS Flush) 2 ml BID IV FLUSH 10/14/17 21:00 10/15/17 11:13 (NS Flush) 2 ml UNSCH PRN IV FLUSH 10/14/17 15:00 (Mylicon Chew) 80 mg QID PRN PO 10/14/17 15:00 (Tylenol) 650 mg Q6H PRN PO 10/14/17 15:00 (Motrin) 600 mg Q6H PRN PO 10/14/17 15:00 10/16/17 05:27 (Percocet 5-325 Mg) 1 tab Q4H PRN PO 10/14/17 15:00 10/15/17 22:05 (Percocet 5-325 Mg) 2 tab Q4H PRN PO 10/14/17 15:00 10/16/17 05:27 (Jenifer-Colace) 2 tab Q12H PRN PO 10/14/17 15:00 10/16/17 05:27 (Ambien) 5 mg HS PRN PO 10/14/17 15:00 (Zofran Inj) 4 mg Q6H PRN IV PUSH 10/14/17 15:00 10/14/17 22:19 (Robitussin Liq) 200 mg Q4H PRN PO 10/14/17 21:00 (Toradol Inj) 30 mg Q6H PRN IV PUSH 10/14/17 21:45 10/18/17 21:44 10/15/17 11:34 (Tessalon) 200 mg Q8H PRN PO 10/14/17 23:00 10/16/17 05:34 (Habitrol 21 Mg Patch.24 Hr) 1 patch DAILY T-DERMAL 10/14/17 23:15 10/15/17 09:39 Miscellaneous Information 1 HS T-DERMAL 10/15/17 21:00 Miscellaneous Information No systemic narcotics to be given except... UNSCH PRN .XX 10/15/17 12:45 10/16/17 12:44 Miscellaneous Information DO NOT ADMINISTER ANY ANTICOAGUL... UNSCH PRN .XX 10/15/17 12:45 10/16/17 12:44 Fentanyl/ Bupivacaine HCl 100 ml @ 0 mls/hr TITRATE EPIDURAL 10/15/17 12:45 (ePHEDrine/NS 25 MG/5 ML SYR) 10 mg UNSCH PRN IV PUSH 10/15/17 12:45 128/17 12:44 Assessment/Plan Problem List: (1) delivery delivered ICD Codes: O82 - Encounter for delivery without indication Assessment and Plan 22 y/o female who is POD # 1 s/p Primary after failed induction for macrosomia and polyhydramnios. -Continue routine care. -Hgb dropped to 8.0 post-operatively, patient asymptomatic - O negative blood type s/p Rhogam -Percocet and Motrin PRN pain. -Encouraged OOB. Advised pelvic rest for 6 wks. Will need a f/u appt. in 1 wk for incision check. -Re: ctrl, she would like OCP. - Discharge home today or tomorrow. Anjana Allen Dr., MD, R3 Oct 16, 2017 06:55
[2017-10-16 08:00] VITALS: BP 120/70; PULSE 94; RESP 16; TEMP 98.1; O2SAT 95
[2017-10-16] MEDS: REMOVE OLD NICODERM (NICOTINE) PATCH T-DERMAL SCH (09:33)
[2017-10-16] MEDS: NICOTINE 21 MG/24 HR PATCH T-DERMAL SCH (09:34)
[2017-10-16] MEDS ORDERED: IBUP-232 PO (13:23)
[2017-10-16] MEDS ORDERED: OXYC1TAB63 PO (13:23)
--- NOTE | 2017-10-16 13:25 | HHI.DCPOC ---
Discharge Care Plan Report Symptoms to Your Doctor -Temperature above 100.5 degrees -Redness, of incision or excessive or foul smelling drainage -Unusual pain or calf pain -Increased vaginal bleeding -Painful or difficulty urinating -Feelings of extreme sadness or anxiety after 2 weeks Goals to Promote Your Health * To prevent worsening of your condition and complications, please take medications as prescribed. Please take showers only (no baths) for the next 2-[address] nothing in the vagina for the next 6 weeks (this includes no sexual intercourse). * To maintain your health at the optimal level, please follow up with your OB/ [facility] in 1 week, and then a visit in 6 weeks. Directions to Meet Your Goals Take your medications as prescribed Follow your dietary instruction Follow activity as directed Ensure plenty of rest for recovery Drink fluids for hydration Keep your appointments as scheduled Take your immunizations and boosters as scheduled If your symptoms worsen call your PCP, if no PCP go to Urgent Care Center or Emergency Room Smoking is Dangerous to Your Health. Avoid second hand smoke Call the 24-hour crisis hotline for domestic abuse at Martin Espino MD R1 Oct 16, 2017 13:25
== END 2017-10-16 15:57 | disposition home or self-care (01) | DRG 765 ==
LOC: H2EB 12:26 → H1EA 10-14 16:11
PROVIDERS: ADMIT Obstetrics & Gynecology; ATTEND Obstetrics & Gynecology
PROC: 3E0P7VZ Introduction of Hormone into Female Reproductive, Via Natural or Artificial Opening (ICD-10-PCS; 2017-10-13)
PROC: 10D00Z1 Extraction of Products of Conception, Low, Open Approach (ICD-10-PCS; principal; 2017-10-14)
DX: O48.0 Post-term pregnancy (principal); O40.3XX0 Polyhydramnios, third trimester, not applicable or unspecified; O36.63X0 Maternal care for excessive fetal growth, third trimester, not applicable or unspecified; O36.8130 Decreased fetal movements, third trimester, not applicable or unspecified; O99.334 Smoking (tobacco) complicating childbirth; F17.210 Nicotine dependence, cigarettes, uncomplicated; O99.824 Streptococcus B carrier state complicating childbirth; O61.9 Failed induction of labor, unspecified; Z37.0 Single live birth; Z3A.40 40 weeks gestation of pregnancy
CPT/HCPCS: 59025; 80307; 81001; 83036; 85025; 85461; 86077; 86592; 86593; 86850; 86870; 86900; 86901; 86920; 86922; 90384; 90715; J0690; J1885; J2405; J2590; J2790; J7120

== ENCOUNTER 2017-10-21 14:33 | Emergency (ER) | payer OTHER ==
[~2017-10-21] VITALS: Ht 157.5 cm; Wt 95.7 kg
[~2017-10-21 14:33] MED LIST changes: -AMOX500T PO; +IBUP-232 PO; +OXYC1TAB63 PO
[2017-10-21 14:41] VITALS: BP 152/95; PULSE 118; RESP 16; TEMP 98.2; O2SAT 98
[2017-10-21] MEDS ORDERED: SODIUM CHLOR 0.9% 1000 ML INJ 1,000 ML IV SCH (14:48)
--- NOTE | 2017-10-21 14:48 | PD ---
HPI Chief Complaint: Highway Truck Driver Problem/Complaint Time Seen by Provider: 14:47 Travel History International Travel<30 days: No Contact w/Intl Traveler<30days: No Traveled to known affect area: No History of Present Illness HPI 22-year-old female came to the emergency room with history of vaginal bleeding that started since she had her baby which was on 10/14/2017. This was a C- section. Patient says that for past few days she has been passing pain and heavy clots. Today she hasn't passed any clots but has been lightheaded. She had a blood test done 2 days ago which had a hemoglobin of 6.5. She has had appointment with her OB tomorrow but because of her symptoms her father insisted that she should come to the emergency room and be checked out. Patient was tachycardic in triage. She is awake however and answering questions appropriately. She appears to be mildly distressed. She's not breast -feeding. Patient is A0. She denies of any significant pain. No history of fever or chills. She says that her urine and blood smells bad. [facility] Past Medical History Narrative Medical List of her past medical, surgical, social and family history is reviewed from the nursing note. ?: Not Social History Alcohol Use: No Tobacco Use: Yes Substance Use: No Allergies-Medications (Allergen,Severity, Reaction): Coded Allergies: No Known Allergies (Unverified Allergy, Unknown, 10/13/17) Comments no known drug allergies. Reported Meds & Prescriptions Reported Meds & Active Scripts Active Macrobid (Nitrofurantoin Monoh/Nitrofur Macro) 100 Mg Cap 100 Mg PO BID 10 Days Oxycodone-Acetaminophen 5-325 (Oxycodone HCl/Acetaminophen) 5 Mg-325 Mg Tablet 1 Tab PO Q4H PRN 3 Days Ibuprofen 600 Mg Tab 600 Mg PO Q6H PRN 5 Days Concept Dha 53.5-38-1 mg ( Vit W/ Fe Fum-Iron Po) 1 Cap Cap 1 Tab PO DAILY Narrative Medication List of her home medications reviewed from the nursing note. Review of Systems Except as stated in HPI: all other systems reviewed are Neg Genitourinary: Positive: Menorrhagia Physical Exam Narrative GENERAL: Awake, alert, moderate distress, obese SKIN: Focused skin assessment warm/dry. Pale. The surgical incision appears to be healing well. The surrounding skin appears to be normal. No discharge. The Steri-Strips are intact HEAD: Atraumatic. Normocephalic. EYES: Pupils equal and round. No scleral icterus. No injection or drainage. ENT: No nasal bleeding or discharge. Mucous membranes pink and moist. NECK: Trachea midline. No JVD. CARDIOVASCULAR: Regular rate and rhythm. No murmur appreciated. RESPIRATORY: No accessory muscle use. Clear to auscultation. Breath sounds equal bilaterally. GASTROINTESTINAL: Abdomen soft, non-tender, nondistended. Hepatic and splenic margins not palpable. MUSCULOSKELETAL: No obvious deformities. No clubbing. No cyanosis. No edema. NEUROLOGICAL: Awake and alert. No obvious cranial nerve deficits. Motor grossly within normal limits. Normal speech. PSYCHIATRIC: Appropriate mood and affect; insight and judgment normal. Data Data Last Documented VS Orders Orders Basic Metabolic Panel (Bmp) (10/21/17 14:48) Complete Blood Count With Diff (10/21/17 14:48) Prothrombin Time / Inr (Pt) (10/21/17 14:48) Type And Screen (10/21/17 14:48) Ecg Monitoring (10/21/17 14:48) Iv Access Insert/Monitor (10/21/17 14:48) Oximetry (10/21/17 14:48) Sodium Chlor 0.9% 1000 Ml Inj (Ns 1000 M (10/21/17 14:48) Sodium Chloride 0.9% Flush (Ns Flush) (10/21/17 15:00) Ed Urine Pregnancytest Poc (10/21/17 14:48) Us Pelvis Comp Highway Truck Driver/Non-Preg (10/21/17 ) Urinalysis - C+S If Indicated (10/21/17 15:37) Urine Culture (10/21/17 15:41) Ceftriaxone Inj (Rocephin Inj) (10/21/17 16:15) Sodium Chlor 0.9% 1000 Ml Inj (Ns 1000 M (10/21/17 16:15) Blood Culture (10/21/17 16:07) Sodium Chlor 0.9% 1000 Ml Inj (Ns 1000 M (10/21/17 16:15) Ed Discharge Order (10/21/17 16:32) Labs Laboratory Tests Test 10/21/17 15:04 10/21/17 15:41 White Blood Count 12.4 TH/MM3 Red Blood Count 3.86 MIL/MM3 Hemoglobin 8.6 GM/DL Hematocrit 27.7 % Mean Corpuscular Volume 71.6 FL Mean Corpuscular Hemoglobin 22.3 PG Mean Corpuscular Hemoglobin Concent 31.2 % Red Cell Distribution Width 15.3 % Platelet Count 671 TH/MM3 Mean Platelet Volume 6.6 FL Neutrophils (%) (Auto) 64.5 % Lymphocytes (%) (Auto) 23.8 % Monocytes (%) (Auto) 7.6 % Eosinophils (%) (Auto) 3.3 % Basophils (%) (Auto) 0.8 % Neutrophils # (Auto) 8.0 TH/MM3 Lymphocytes # (Auto) 3.0 TH/MM3 Monocytes # (Auto) 0.9 TH/MM3 Eosinophils # (Auto) 0.4 TH/MM3 Basophils # (Auto) 0.1 TH/MM3 CBC Comment AUTO DIFF Differential Comment AUTO DIFF CONFIRMED Platelet Estimate HIGH Platelet Morphology Comment NORMAL Target Cells 1+ Prothrombin Time 10.4 SEC Prothromb Time International Ratio 1.0 RATIO Blood Urea Nitrogen 5 MG/DL Creatinine 0.42 MG/DL Random Glucose 76 MG/DL Calcium Level 8.5 MG/DL Sodium Level 141 MEQ/L Potassium Level 3.6 MEQ/L Chloride Level 109 MEQ/L Carbon Dioxide Level 22.5 MEQ/L Anion Gap 10 MEQ/L Estimat Glomerular Filtration Rate 192 ML/MIN Urine Collection Type CLEAN CATCH Urine Color YELLOW Urine Turbidity SLIGHT Urine pH 7.5 Urine Specific [place] 1.015 Urine Protein TRACE mg/dL Urine Glucose (UA) NEG mg/dL Urine Ketones NEG mg/dL Urine Occult Blood LARGE Urine Nitrite NEG Urine Bilirubin NEG Urine Leukocyte Esterase LARGE Urine RBC 100-200 /hpf Urine WBC 100-200 /hpf Urine Squamous Epithelial Cells > 8 /hpf Urine Transitional Epithelial Cells 6-8 /hpf Urine Bacteria FEW /hpf Microscopic Urinalysis Comment CULTURE INDICATED Urine Collection Time 15:41 MDM Medical Decision Making Medical Screen Exam Complete: Yes Emergency Medical Condition: Yes Medical Record Reviewed: Yes Differential Diagnosis Endometritis, retained products of conception, symptomatic anemia Narrative Course 4:28 PM blood test results of back and her white count is slightly elevated with thrombocytosis. Patient is slightly anemic but not to the point where transfusion is needed. Pelvic ultrasound was ordered which does not show any retained products of conception. The endometrium is thickened which as per the radiologist as expected . Chemistry was within normal limit. Patient is getting IV fluid bolus 2 and p.m. Macrobid and IV Rocephin for a UTI. I am comfortable discharging the patient home with prescription for Macrobid. She has an appointment with her OB tomorrow morning. Encouraged her to keep that appointment and follow-up on further recommendations from them. Procedures EKG Prior to Arrival: No Diagnosis Primary Impression: bleeding Qualified Codes: O72.1 - Other immediate hemorrhage Additional Impressions: UTI (urinary tract infection) Qualified Codes: N39.0 - Urinary tract infection, site not specified Anemia Qualified Codes: D64.9 - Anemia, unspecified Referrals: Primary Care Physician 1 day Additional Instructions: Please follow-up with your OB tomorrow as per her appointment. Take the medication as per the prescription direction. You should not be lifting heavy weight, no tampons, no douching or vaginal intercourse or anything in the vagina. Return to the ER if the condition worsens or any other new concerns. Med/Other Pt SpecificInfo: Prescription(s) given Scripts Nitrofurantoin Monohydrate Macrocrystals (Macrobid) 100 Mg Cap 100 MG PO BID for Infection for 10 Days, #20 CAP 0 Refills Prov: Chau Hodges MD 10/21/17 Disposition: 01 DISCHARGE HOME Condition: Stable Chau Hodges MD Oct 21, 2017 14:48
[2017-10-21] MEDS ORDERED: SODIUM CHLORIDE 0.9% FLUSH 10 ML FLUSH IVF PRN (15:00)
[2017-10-21 15:05] VITALS: O2SAT 97
[2017-10-21 15:17] LABS: BASOPHIL # 0.1 TH/MM3 (0-0.2); BASOPHIL % 0.8 % (0.0-2.0); EOSINOPHIL # 0.4 TH/MM3 (0-0.4); EOSINOPHIL % 3.3 % (0.0-4.0); HEMATOCRIT 27.7 % (35.0-46.0); LYMPH % 23.8 % (9.0-44.0); MEAN CELL VOLUME 71.6 FL (80.0-100.0); MEAN CORPUSCULAR HEMOGLOBIN 22.3 PG (27.0-34.0); MEAN CORPUSCULAR HGB CONC 31.2 % (32.0-36.0); MONO % 7.6 % (0.0-8.0); NEUT % 64.5 % (16.0-70.0); PLATELET COUNT 671 TH/MM3 (150-450); RED BLOOD COUNT 3.86 MIL/MM3 (4.00-5.30); RED CELL DISTRIBUTION WIDTH 15.3 % (11.6-17.2); WHITE BLOOD COUNT 12.4 TH/MM3 (4.0-11.0)
[2017-10-21 15:27] LABS: HEMO FLAGS AUTO DIFF
[2017-10-21 15:29] LABS: PROTHROMBIN TIME - PATIENT 10.4 SEC (9.8-11.6)
[2017-10-21 15:41] VITALS: BP 141/87; PULSE 89; RESP 16; O2SAT 98
[2017-10-21 15:47] LABS: BLOOD, URINE LARGE (NEG); GLUCOSE,URINE NEG (NEG); KETONE, URINE NEG (NEG); NITRITE,URINE NEG (NEG); PH, URINE 7.5 (5.0-8.5)
--- NOTE | 2017-10-21 15:50 | RADRPT ---
EXAM DATE/TIME: 10/21/2017 15:07 [place] COMPARISON: No previous studies available for comparison. INDICATIONS : Increased heavy bleeding with clots post cesearean section 10/14/17. MEDICAL HISTORY : Cesearean section 10/14/17. SURGICAL HISTORY : section. ENCOUNTER: Initial ACUITY: 4-6 days PAIN SCORE: 6/10 LOCATION: Bilateral pelvis MEASUREMENTS: UTERUS: 15.4 x 6.3 x 10.5 cm ENDOMETRIAL STRIPE: 15 mm RIGHT OVARY: 4.2 x 2.5 x 3.0 cm LEFT OVARY: 5.0 x 3.2 x 4.0 cm FINDINGS: UTERUS: Mild endometrial thickening is noted. There are no discrete endometrial canal filling defe cts. RIGHT OVARY: Ovary contains no mass or significant cystic lesion. LEFT OVARY: Ovary contains no mass or significant cystic lesion. MISCELLANEOUS: No free fluid. CONCLUSION: 1. endometrial thickening. 2. No other significant abnormality. Alan Segundo MD on October 21, 2017 at 15:45 Board Certified Radiologist. This report was verified electronically.
[2017-10-21 15:54] LABS: BICARBONATE 22.5 MEQ/L (21.0-32.0)
[2017-10-21 15:55] LABS: METHOD OF COLLECTION CLEAN CATCH; URINE COLOR YELLOW (YELLW/STRAW)
[2017-10-21 15:56] LABS: RBC, URINE 100-200 /hpf (0-3); SQUAMOUS EPITHELIAL CELL URINE > 8 /hpf (0-5); WBC, URINE 100-200 /hpf (0-5)
[2017-10-21 15:57] LABS: BACTERIA, URINE FEW /hpf; COMMENT (UR) CULTURE INDICATED; CULTURE IF INDICATED CULTURE INDICATED
[2017-10-21 16:04] LABS: PLATELET ESTIMATE SMEAR HIGH (NORMAL); PLATELET MORPHOLOGY NORMAL (NORMAL); SCAN/DIFF AUTO DIFF CONFIRMED; TARGET CELLS 1+ (NORMAL)
[2017-10-21] MEDS ORDERED: SODIUM CHLOR 0.9% 1000 ML INJ 1,000 ML IV ONE ×2 (16:15)
[2017-10-21] MEDS ORDERED: cefTRIAXone INJ 1,000 MG in SODIUM CHLORIDE 0.9% INJ 100 ML IV ONE (16:15)
[2017-10-21 16:27] LABS: POTASSIUM 3.6 MEQ/L (3.5-5.1)
[2017-10-21] MEDS ORDERED: MACR100C2 PO (16:31)
[2017-10-21 18:34] VITALS: BP 146/88
== END 2017-10-21 18:37 | disposition home or self-care (01) ==
LOC: PHED 14:33
DX: O72.1 Other immediate postpartum hemorrhage (principal); O86.20 Urinary tract infection following delivery, unspecified; B96.89 Other specified bacterial agents as the cause of diseases classified elsewhere; O90.81 Anemia of the puerperium; D64.9 Anemia, unspecified; O99.335 Smoking (tobacco) complicating the puerperium; F17.200 Nicotine dependence, unspecified, uncomplicated
CPT/HCPCS: 76856; 80048; 81001; 84703; 85025; 85610; 86850; 86900; 86901; 87040; 87086; 96361; 96365; 96366; 99284; J0696; J7030